=== PATIENT | male | born 1965 | race Native Hawaiian/Other Pacific Islander ===

== ENCOUNTER 2017-11-26 14:11 | Outpatient (CLI) | payer OTHER ==
[~2017-11-26 14:11] MED LIST: CELEXA20 MG PO; LEVO0.0723 PO
== END 2017-11-26 20:53 | disposition home or self-care (01) ==
LOC: CT 14:11
DX: J32.9 Chronic sinusitis, unspecified (principal)

== ENCOUNTER 2018-04-11 11:51 | Emergency (ER) | payer OTHER ==
[~2018-04-11] VITALS: Ht 190.5 cm; Wt 129.3 kg
[2018-04-11 12:41] LABS: PLATELET COUNT 342 K/uL (142-355)
[2018-04-11 12:50] LABS: POTASSIUM 3.9 mmol/L (3.6-5.2); SODIUM 139 mmol/L (136-145)
[2018-04-11 13:50] VITALS: BP 150/96; TEMP 97.9
== END 2018-04-11 13:50 | disposition home or self-care (01) ==
LOC: ED 11:51
DX: R51 Headache (principal); R07.89 Other chest pain
CPT/HCPCS: 36415; 80053; 80307; 81000; 82550; 84484; 85027; 93005; 99283